=== PATIENT | female | born 1955 | race Caucasian/White ===

== ENCOUNTER → 2017-09-13 | Outpatient (CLI) | payer OTHER ==
[~2017-09-13] MED LIST: CHOL100010 PO; CLC100 PO; CRSUNK; EFFSR75 PO; GLCSUNK; TAMO20TA47 PO
== END | disposition home or self-care (01) ==
LOC: C.PAPS 11:15
PROVIDERS: ATTEND Obstetrics & Gynecology
DX: Z12.4 Encounter for screening for malignant neoplasm of cervix (principal)

== ENCOUNTER → 2018-01-10 | Outpatient (CLI) | payer OTHER ==
[~2018-01-10] MED LIST changes: +METH4PAK PO; -TAMO20TA47 PO; +TAMO20TA9 PO
--- NOTE | 2018-01-10 15:24 | DIAGNOSTIC IMAGING REPORT ---
SINUSES MIN 3 VIEWS ROUTINE CLINICAL HISTORY: Left-sided headache. COMPARISON STUDY: Sinus CT September 29, 2017. FINDINGS: The sinuses and mastoid air cells appear clear. There are multiple dental amalgams. IMPRESSION: Clear paranasal sinuses. Electronically signed by: Jc Henriquez M.D. 01/10/2018 3:23 PM Dictated Date/Time: 01/10/2018 3:22 PM
== END | disposition home or self-care (01) ==
LOC: C.RAD 14:34
PROVIDERS: ATTEND Family Medicine
DX: R51 Headache (principal)

== ENCOUNTER 2018-01-11 15:47 | Emergency (ER) | payer OTHER ==
[~2018-01-11] VITALS: Ht 154.9 cm; Wt 59.9 kg
[~2018-01-11 15:47] MED LIST changes: -METH4PAK PO
[2018-01-11 15:59] VITALS: Ht 154.9 cm; Wt 59.9 kg
[2018-01-11] MEDS ORDERED: PROCHLORPERAZINE 5 MG/ML 2 ML VIAL IV STA (16:22)
[2018-01-11] MEDS ORDERED: KETOROLAC TROMETHAMINE 30 MG/ML VIAL IV STA (16:22)
[2018-01-11] MEDS ORDERED: SODIUM CHLORIDE 0.9% 1000ML 1,000 ML IV STA (16:22)
[2018-01-11] MEDS ORDERED: DiphenhydrAMINE HCL 50 MG/ML VIAL IV STA (16:22)
--- NOTE | 2018-01-11 16:31 | EMERGENCY ROOM VISIT NOTE ---
History First contact with patient: 16:14 Chief Complaint: HEADACHE Stated Complaint: SEVERE HEADACHE, LEFT SIDE FACIAL PAIN- REFERRED History of Present Illness The patient is a 62 year old female who presents to the Emergency Room with complaints of "the worst headache of my life". The patient states the headache began on Monday, and is all located on the left side of her head. She states it radiates from the top of the head towards the back, but does not extend into the neck. She states there is tenderness on palpation, but when she puts pressure against her head, the symptoms improved. There was no trauma, and she has not recently been ill. There is no visual disturbances, dizziness, nausea, vomiting, numbness, tingling, weakness, back pain, or radiating pain. The patient does not have a history of migraines. She started taking a Z-Remy that she had at home because she thought it could be a sinus infection. On Monday , she saw her PCP, who suspected trigeminal neuralgia. The patient was started on Lyrica at that time. She also had a sinus x-ray performed at that time which was negative. She continues to have headache today, and states it has not changed since Monday. She was planning to get on a plane to go see her son , however the flight continues to be getting delayed throughout the day. She contacted her PCP again who recommended she come to the emergency department for a CT scan or MRI and lab workup due to the ongoing headache. She does have a family history of trigeminal neuralgia, and is concerned her symptoms could be related. The patient spoke with her son who is an jewelry bench worker, and he did not feel that the symptoms are related to her eyes, she is having no visual changes. Review of Systems A complete 10 point review of systems was reviewed with the patient with pertinent positives and negatives as per history of present illness. All else were negative. Past Medical/Surgical History None Social History Smoking Status: Never Smoker Current/Historical Medications Scheduled Cholecalciferol (Vitamin D), 2,000 INTER.UNIT PO QAM Glucosamine Sulfate (Glucosamine Unknown Dose), 2 TABLETS QAM Methylprednisolone (Medrol Dosepak), 0 PO DAILY Rosuvastatin Calcium (Crestor Unknown Dose), 1 TAB QAM Tamoxifen (Nolvadex), 20 MG PO QAM Venlafaxine Ext Rel (Effexor Extended Rel *), 75 MG PO QAM Allergies Naproxen Physical Exam Vital Signs Date Time Temp Pulse Resp B/P (MAP) Pulse Ox O2 Delivery O2 Flow Rate FiO2 01/11/18 20:26 37.0 81 18 129/74 94 Room Air 01/11/18 19:33 74 18 162/88 96 Room Air 01/11/18 18:56 36.9 81 18 134/90 96 Room Air 01/11/18 17:34 73 18 153/81 98 Room Air 01/11/18 15:59 36.6 97 18 126/65 97 Room Air Physical Exam VITALS: Vitals are noted on the nurse's note and reviewed by myself. Vital signs stable. GENERAL: This is a 62-year-old white female, in no acute distress, nondiaphoretic, well-developed well-nourished. SKIN: The skin was without rashes, erythema, edema, or bruising. There is no tenting of the skin. Capillary reflex less than 2 seconds. HEAD: Normocephalic atraumatic. EARS: External auditory canals clear, tympanic membranes pearly low without erythema or effusion bilaterally. EYES: Pupils equal round and reactive to light and accommodation. Conjunctivae without injection, sclerae without icterus. Extraocular movements intact. NOSE: Patent, turbinates without inflammation or discharge. No sinus tenderness. MOUTH: Mucous membranes moist. Tonsils are not enlarged. Pharynx without erythema or exudate. Uvula midline. Airway patent. Tongue does not deviate. NECK: Supple without nuchal rigidity. No lymphadenopathy. No thyromegaly. Cervical spine is nontender. No JVD. HEART: Regular rate and rhythm without murmurs gallops or rubs. LUNGS: Clear to auscultation bilaterally without wheezes, rales or rhonchi. No dullness to percussion. No retractions or accessory muscle use. ABDOMEN: Positive bowel sounds x 4. Normal tympanic percussion. Soft, nontender, without masses or organomegaly. Boucher sign negative. No guarding or rebound tenderness. MUSCULOSKELETAL: Mild tenderness on palpation of the left side of the head. No muscle atrophy, erythema, or edema noted. Full range of motion without joint tenderness in all extremities. No tenderness to palpation. Normal gait. Strength 5/5 throughout. NEURO: Patient was alert and oriented to person place and time. Normal sensation to light and sharp touch. Deep tendon reflexes 2+ throughout. No focal neurological deficits. Cerebellar function intact. Medical Decision & Procedures ER Provider Diagnostic Interpretation: HEAD CT NONCONTRAST CT DOSE: 767.83 mGy.cm HISTORY: Severe left-sided headache. TECHNIQUE: Multiaxial CT images of the head were performed without the use of intravenous contrast. Automated exposure control was utilized for this study. A dose lowering technique was utilized adhering to the principles of ALARA. Comparison: Sinus CT 09/29/2017. Findings: The paranasal sinuses and mastoid air cells are clear. The calvarium and skull base are intact. The ventricles and sulci are within normal limits. There is no mass, hematoma, midline shift, or acute infarct. There are 2, 5 mm sclerotic foci seen within the left sphenoid bone on image 6. The more anterior focus is better present on the recent sinus CT and favors a bone island. The focus at the anterior clinoid is consistent with a pneumatized clinoid. Impression: No acute intracranial abnormality. Electronically signed by: Rick Estevez M.D. 01/11/2018 5:20 PM Dictated Date/Time: 01/11/2018 5:11 PM Laboratory Results 01/11/18 16:50 Red Blood Count 4.42, Mean Corpuscular Volume 90.7, Mean Corpuscular Hemoglobin 30.3, Mean Corpuscular Hemoglobin Concent 33.4, Mean Platelet Volume 9.0, Neutrophils (%) (Auto) 53.0, Lymphocytes (%) (Auto) 33.1, Monocytes (%) (Auto) 10.3, Eosinophils (%) (Auto) 2.7, Basophils (%) (Auto) 0.7, Neutrophils # (Auto ) 3.09, Lymphocytes # (Auto) 1.93, Monocytes # (Auto) 0.60, Eosinophils # (Auto ) 0.16, Basophils # (Auto) 0.04 01/11/18 16:50 Test 01/11/18 16:50 01/11/18 17:31 01/11/18 19:20 White Blood Count 5.83 K/uL (4.8-10.8) Red Blood Count 4.42 M/uL (4.2-5.4) Hemoglobin 13.4 g/dL (12.0-16.0) Hematocrit 40.1 % (37-47) Mean Corpuscular Volume 90.7 fL (80-100) Mean Corpuscular Hemoglobin 30.3 pg (25-34) Mean Corpuscular Hemoglobin Concent 33.4 g/dl (32-36) Platelet Count 217 K/uL (130-400) Mean Platelet Volume 9.0 fL (7.4-10.4) Neutrophils (%) (Auto) 53.0 % Lymphocytes (%) (Auto) 33.1 % Monocytes (%) (Auto) 10.3 % Eosinophils (%) (Auto) 2.7 % Basophils (%) (Auto) 0.7 % Neutrophils # (Auto) 3.09 K/uL (1.4-6.5) Lymphocytes # (Auto) 1.93 K/uL (1.2-3.4) Monocytes # (Auto) 0.60 K/uL (0.11-0.59) Eosinophils # (Auto) 0.16 K/uL (0-0.5) Basophils # (Auto) 0.04 K/uL (0-0.2) RDW Standard Deviation 42.9 fL (36.4-46.3) RDW Coefficient of Variation 12.9 % (11.5-14.5) Immature Granulocyte % (Auto) 0.2 % Immature Granulocyte # (Auto) 0.01 K/uL (0.00-0.02) Erythrocyte Sedimentation Rate 12 mm/hr (0-21) Prothrombin Time 10.0 SECONDS (9.0-12.0) Prothromb Time International Ratio 1.0 (0.9-1.1) Activated Partial Thromboplast Time 26.6 SECONDS (21.0-31.0) Partial Thromboplastin Ratio 1.0 Anion Gap 8.0 mmol/L (3-11) Est Creatinine Clear Calc Drug Dose 62.9 ml/min Estimated GFR () 95.9 Estimated GFR (Non- 82.8 BUN/Creatinine Ratio 23.4 (10-20) Calcium Level 9.2 mg/dl (8.5-10.1) Magnesium Level 2.2 mg/dl (1.8-2.4) Total Bilirubin 0.4 mg/dl (0.2-1) Aspartate Amino Transf (AST/SGOT) 17 U/L (15-37) Alanine Aminotransferase (ALT/SGPT) 26 U/L (12-78) Alkaline Phosphatase 52 U/L (45-117) C-Reactive Protein < 0.29 mg/dl (0-0.29) Total Protein 7.5 gm/dl (6.4-8.2) Albumin 3.9 gm/dl (3.4-5.0) Globulin 3.6 gm/dl (2.5-4.0) Albumin/Globulin Ratio 1.1 (0.9-2) Thyroid Stimulating Hormone (TSH) 1.070 uIu/ml (0.300-4.500) Lyme Disease IgG Antibody NEG (NEG) Lyme Disease IgM Antibody NEG (NEG) Urine Color YELLOW Urine Appearance CLEAR (CLEAR) Urine pH 5.5 (4.5-7.5) Urine Specific Brewster 1.005 (1.000-1.030) Urine Protein NEG (NEG) Urine Glucose (UA) NEG (NEG) Urine Ketones NEG (NEG) Urine Occult Blood NEG (NEG) Urine Nitrite NEG (NEG) Urine Bilirubin NEG (NEG) Urine Urobilinogen NEG (NEG) Urine Leukocyte Esterase TRACE (NEG) Urine WBC (Auto) 0 /hpf (0-5) Urine RBC (Auto) 0-4 /hpf (0-4) Urine Hyaline Casts (Auto) 0 /lpf (0-5) Urine Epithelial Cells (Auto) 0-5 /lpf (0-5) Urine Bacteria (Auto) NEG (NEG) CSF Color COLORLESS CSF Appearance CLEAR CSF WBC 0 /uL (0-5) CSF RBC 0 /uL (0) CSF Xanthrochromic NO XANTHOCHROMIA CSF Cell Count Tube # 4 CSF Chemistry Tube # 2 CSF Glucose 71 mg/dl (40-70) CSF Total Protein 80.5 mg/dl (15.0-45.0) Medications Administered Medications (Trade) Dose Ordered Sig/Thelma Route Start Time Stop Time Status Last Admin Dose Admin Sodium Chloride 1,000 ml @ 999 mls/hr Q1H1M STAT IV 01/11/18 16:22 01/11/18 17:22 DC 01/11/18 16:54 999 MLS/HR Ketorolac Tromethamine (Toradol Inj) 30 mg NOW STAT IV 01/11/18 16:22 01/11/18 16:26 DC 01/11/18 16:53 30 MG Diphenhydramine HCl (Benadryl Inj) 25 mg NOW STAT IV 01/11/18 16:22 01/11/18 16:26 DC 01/11/18 16:53 25 MG Prochlorperazine Edisylate (Compazine Inj) 5 mg NOW STAT IV 01/11/18 16:22 01/11/18 16:26 DC 01/11/18 16:53 5 MG ED Course The patient was seen and evaluated as above. IV access obtained, labs drawn. The patient was given 1 L normal saline, Compazine, Benadryl, and Toradol to help with headache. CT scan ordered and performed. This was reviewed by myself and radiologist as above. I reviewed all results of testing. I discussed the case with Dr. Weeks. He recommended offering lumbar puncture. I discussed the benefits versus risks associated with lumbar puncture at this time to rule out acute cause of the patient's headache. This procedure was performed by Dr. Weeks. Please see his dictation. Results of lumbar puncture reviewed by myself and Dr. Weeks. I consulted with Dr. Brito, neurologist regarding the results. She recommended treating with steroids for headache. I discussed this conversation with the patient and her at bedside. Discharge instructions reviewed, the patient was discharged home in good condition. Medical Decision This is a 62-year-old female patient who presents the emergency department today complaining of "the worst headache of my life". Patient states the headache has been ongoing since Monday, and has not gotten any better or worse, but has remained consistent throughout the week. She was on her way to visit with her son, but her flight kept getting delayed. The patient states because the pain has not improved, she contacted her PCP, who recommended she come to the emergency department for evaluation and imaging of the head. The patient's head CT did not reveal any acute cause of her symptoms. The patient's laboratory workup was overall negative. Her CBC was without leukocytosis, anemia, thrombocytopenia. CMP did not show any significant renal, hepatic, electrolyte abnormalities. Thyroid test was normal.Albuterol coagulation coagulation studies were without abnormality. Urinalysis did not show any signs of infection. Lyme disease testing negative. A lumbar puncture was then performed due to the ongoing headache and only minimal response to migraine medications. This did show positive glucose and protein. I did consult with neurology regarding the positive protein, and she does not feel that that is related to the acute headache. Dr. Brito did feel confident that an acute cause for the headache was successfully ruled out while here in the emergency department. The patient was given migraine medications without significant improvement, but states she was not a fan of how they made her feel tired. I suspect more of a tension type headache, but I discussed with the patient that we are unable to completely rule out temporal arteritis, as the patient does have a strong family history. I did recommend close follow-up outpatient with the primary care provider. The patient is agreeable to this. Etiologies such as migraine, tumor, headache, sinus thrombosis, temporal arteritis, sinusitis, CVA, ICH, SAH, infection, lyme, thyroid abnormality, as well as others were entertained. Medication Reconcilliation Current Medication List: was personally reviewed by me Blood Pressure Screening Patient's blood pressure: Normal blood pressure Impression Primary Impression: Headache Departure Information Dispostion Home / Self-Care Condition GOOD Prescriptions Methylprednisolone (MEDROL DOSEPAK) 4 Mg Remy 0 PO DAILY, #1 PKT Prov: Jaleesa Clifford PA-C 01/11/18 Referrals Unruly Bender M.D. (PCP) Patient Instructions ED Headache Tension, ED Lumbar Puncture Explanation, ED Lumbar Puncture Normal, My [facility] Additional Instructions You have been treated in the Emergency Department for a Headache. You have received pain medicine in the emergency department which impairs your ability to operate a vehicle. You have been prescribed a Medrol Dosepak. This is a steroid which will help decrease your inflammation, redness, and itch. Take the medicine as prescribed. Take the ENTIRE 6 day course of the steroids. No NSAIDs while taking steroids. For pain control, you can use the following [id number] medicines (if >12 yo): Ibuprofen(Motrin, Advil) may be used for fever or pain. Use 600mg every six hours as needed. Take with food. Avoid using more than 2400mg in a 24 hour period. Do not use 2400mg per day for more than three consecutive days without physician direction. Prolonged inappropriate use can lead to stomach upset or ulcers. Do not take this medication while taking steroids. (AND/OR) Acetaminophen(Tylenol) may be used for fever or pain. Use 1000mg every six hours as needed. Avoid using more than 3000mg in a 24 hour period. You should relax in a quiet, dark place for the rest of the day. Avoid any possible triggers including: cigarette smoke, caffeine, nicotine, chocolate, wine, beer, loud noises or music, or bright lights. You should schedule a follow-up appointment in 2-3 days with your Primary Care Provider for further evaluation and treatment of your Headache. Return to the Emergency Department if your current symptoms worsen despite treatment course outlined above, or if you develop any of the following symptoms : intractable pain despite aforementioned treatment course, visual disturbances , loss of vision, unilateral weakness or facial drooping, slurring of speech, loss of coordination, or loss of consciousness. Problem Qualifiers Primary Impression: Headache Headache type: unspecified Headache chronicity pattern: acute headache Intractability: intractable Qualified Codes: R51 - Headache
[2018-01-11 17:05] LABS: BASO % 0.7 %; BASO ABS # 0.04 K/uL (0-0.2); EOS % 2.7 %; EOS ABS # 0.16 K/uL (0-0.5); HEMATOCRIT 40.1 % (37-47); HEMOGLOBIN 13.4 g/dL (12.0-16.0); IG# 0.01 K/uL (0.00-0.02); LYMPH % 33.1 %; LYMPH ABS # 1.93 K/uL (1.2-3.4); MEAN CELL VOLUME 90.7 fL (80-100); MEAN CORPUSCULAR HEMOGLOBIN 30.3 pg (25-34); MEAN CORPUSCULAR HGB CONC 33.4 g/dl (32-36); MONO % 10.3 %; NEUT ABS # 3.09 K/uL (1.4-6.5); PLATELET COUNT 217 K/uL (130-400); RED CELL DISTRIBUTION WIDTH CV 12.9 % (11.5-14.5); RED CELL DISTRIBUTION WIDTH SD 42.9 fL (36.4-46.3); WHITE BLOOD COUNT 5.83 K/uL (4.8-10.8)
[2018-01-11 17:14] LABS: PTT PATIENT 26.6 SECONDS (21.0-31.0)
--- NOTE | 2018-01-11 17:21 | DIAGNOSTIC IMAGING REPORT ---
HEAD CT NONCONTRAST CT DOSE: 767.83 mGy.cm HISTORY: Severe left-sided headache. TECHNIQUE: Multiaxial CT images of the head were performed without the use of intravenous contrast. Automated exposure control was utilized for this study. A dose lowering technique was utilized adhering to the principles of ALARA. Comparison: Sinus CT 09/29/2017. Findings: The paranasal sinuses and mastoid air cells are clear. The calvarium and skull base are intact. The ventricles and sulci are within normal limits. There is no mass, hematoma, midline shift, or acute infarct. There are 2, 5 mm sclerotic foci seen within the left sphenoid bone on image 6. The more anterior focus is better present on the recent sinus CT and favors a bone island. The focus at the anterior clinoid is consistent with a pneumatized clinoid. Impression: No acute intracranial abnormality. Electronically signed by: Rick Estevez M.D. 01/11/2018 5:20 PM Dictated Date/Time: 01/11/2018 5:11 PM
[2018-01-11 17:37] LABS: ALBUMIN 3.9 gm/dl (3.4-5.0); ALT/SGPT 26 U/L (12-78); AST/SGOT 17 U/L (15-37); BLOOD UREA NITROGEN 18 mg/dl (7-18); CALCIUM 9.2 mg/dl (8.5-10.1); CARBON DIOXIDE 28 mmol/L (21-32); CREATININE 0.77 mg/dl (0.60-1.20); GLUCOSE 115 mg/dl (70-99); POTASSIUM 3.5 mmol/L (3.5-5.1); SODIUM 138 mmol/L (136-145)
[2018-01-11 17:49] LABS: ALKALINE PHOSPHATASE 52 U/L (45-117); TOTAL PROTEIN 7.5 gm/dl (6.4-8.2)
--- NOTE | 2018-01-11 19:23 | EMERGENCY ROOM VISIT NOTE ---
ED Visit Note First contact with patient: 18:14 This Patient was discussed with the physician assistant professor of sociology, Jaleesa Clifford PA-C. The pertinent historical and physical exam findings were confirmed. I agree with the studies ordered and with the interpretations of these studies. I agree with the disposition and care plan. Lumbar Puncture Indication: Acute headache. Verbal consent was obtained after the risks and benefits were explained, including but not limited to headache, bleeding/clotting, scarring, infection, pain, and bone/joint/nerve damage. At this time, the risks of the procedure are less than the risks of NOT performing the procedure. A time out was taken and the correct patient and site identified. The patient was placed in the seated position and the back was prepped with betadine and draped in the standard fashion. The L3 intervertebral space was identified, anesthetized locally with 1 % lidocaine without epinephrine, and the spinal needle was inserted through the skin with the bevel parallel to the dural fibers. The needle was carefully advanced into the lumbar cistern and 4 tubes of clear CSF was obtained. The stylet was replaced and the needle was removed. A bandaid was placed and the patient was placed in the supine position. The patient tolerated the procedure well and there were no complications.
[2018-01-11 19:49] LABS: CSF GLUCOSE 71 mg/dl (40-70); CSF TOTAL PROTEIN 80.5 mg/dl (15.0-45.0)
[2018-01-11] MEDS ORDERED: METH4PAK PO (20:25)
[2018-01-11 20:26] VITALS: BP 129/74; PULSE 81; TEMP 37; O2SAT 94
== END 2018-01-11 20:36 | disposition home or self-care (01) ==
LOC: C.EDB 15:48 → C.EDA 20:36
DX: R51 Headache (principal); Z79.899 Other long term (current) drug therapy; Z88.6 Allergy status to analgesic agent